=== PATIENT | female | born 1940 | race Caucasian/White ===

== ENCOUNTER → 2020-07-08 11:00 | Outpatient (CLI) | payer MEDICARE, SELFPAY ==
--- NOTE | ~2020-07-08 | XR_ITS ---
EXAMINATION: XR foot RT min 3V DATE: 07/08/2020 11:33 INDICATION: Right foot injury and pain. TECHNIQUE: 4 views of right foot were obtained. COMPARISON: Right foot radiographs 03/18/2018, 02/27/18 FINDINGS: Bone alignment is normal. There are surgical changes of bunionectomy and bunionette-ectomy. There are changes of anterior fusion procedure at first metatarsophalangeal joint with fractured julia tati plate and multiple screws, 2 which are fractured. There is no bridging bone at the first metatars ophalangeal joint. There is moderate osteoarthritis of second metatarsophalangeal joint. There is chr onic flattening of head of second metatarsal, consistent with Freiberg infraction. 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 There is a sliver of bone dorsolateral to the talar head. There is an enthesophyte at plantar aspect of calcaneal tuberosity. IMPRESSION: 1. Age-indeterminate small avulsion fracture fragment dorsolateral to the talar head, new from 018. 2. Failed arthrodesis procedure at first metatarsophalangeal joint. 3. Moderate osteoarthritis of second metatarsophalangeal joint. Reviewed, dictated and finalized at location A. IMPRESSION: 1. Age-indeterminate small avulsion fracture fragment dorsolateral to the talar head, new from 02/27/2018. 2. Failed arthrodesis procedure at first metatarsophalangeal joint. 3. Moderate osteoarthritis of second metatarsophalangeal joint.
== END ==
PROVIDERS: PCP Family Medicine Adolescent Medicine; Visit Provider Family Medicine Adolescent Medicine
DX: M19.071 Primary osteoarthritis, right ankle and foot (principal)
CPT/HCPCS: 73630

== ENCOUNTER 2021-12-20 07:46 | Outpatient (CLI) | payer MEDICARE, SELFPAY ==
--- NOTE | 2021-12-20 08:51 | ECG_ITS ---
Measurements Intervals [place] Rate: 71 P: 52 MS: 146 QRS: 17 QRSD: 79 T: 15 QT: 365 QTc: 399 Interpretive Statements SINUS RHYTHM ATRIAL PREMATURE COMPLEX DELAYED PRECORDIAL R/S TRANSITION LOW QRS VOLTAGE IN PRECORDIAL LEADS CONSIDER INFERIOR INFARCT, AGE INDETERMINATE BORDERLINE ST ABNORMALITY- ANTEROLATERAL LEADS BASELINE ARTIFACT- I, II, III, AVR, AVL, AVF ABNORMAL ECG Electronically Signed On 12-20-2021 9:32:07 [facility] NEED[facility] by Suhail Vail D.O.
[2021-12-20 09:29] LABS: Basophils Absolute Auto 0.1 K/mm3 (0.0-0.1); Basophils Percent Auto 0.9 % (0.2-1.2); Eosinophils Absolute Auto 0.5 K/mm3 (0-0.3); Eosinophils Percent Auto 4.8 % (0-4.4); Hematocrit 44.1 % (37.0-47.0); Hemoglobin 14.3 g/dL (12.0-15.0); Immature Granulocyte Absolute 0.05 K/mm3 (0.00-0.031); Immature Granulocyte Percent A 0.5 % (0-0.5); Lymphocytes Absolute Auto 1.02 K/mm3 (0.9-3.2); Lymphocytes Percent Auto 9.9 % (18.3-44.2); Mean Corpuscular HGB Conc 32.4 g/dl (32-36); Mean Corpuscular Hemoglobin 30.2 pg (26-34); Mean Corpuscular Volume 93.2 fl (80-100); Mean Platelet Volume 9.9 fl (7.4-10.4); Monocytes Absolute Auto 0.9 K/mm3 (0.1-0.6); Monocytes Percent Auto 8.9 % (2.6-8.5); Neutrophils Absolute Auto 7.7 K/mm3 (1.3-6.7); Platelet Count Result 305 k/mm3 (150-375); Red Blood Count 4.73 M/mm3 (4.2-5.4); Red Cell Distribution Width 14.4 % (11.5-14.5); White Blood Count 10.3 K/mm3 (4.5-10.0)
[2021-12-20 09:40] LABS: Albumin Level 4.4 g/dL (3.5-5.1); Estimated Glomerular Filt Rate 33; Glucose 108 mg/dL (65-110)
[2021-12-20 09:42] LABS: Urine Cotinine NEGATIVE
[2021-12-20 09:44] LABS: Hemoglobin A1C 5.2 % (<5.7)
== END 2021-12-20 07:47 | disposition home or self-care (01) ==
PROVIDERS: PCP Family Medicine Adolescent Medicine; Visit Provider Orthopaedic Surgery
DX: Z01.818 Encounter for other preprocedural examination (principal); M17.11 Unilateral primary osteoarthritis, right knee; I49.1 Atrial premature depolarization; Z51.81 Encounter for therapeutic drug level monitoring; Z79.899 Other long term (current) drug therapy
CPT/HCPCS: 80307; 82040; 82565; 82947; 83036; 85025; 86850; 86900; 86901; 87081; 93005

== ENCOUNTER → 2022-01-04 09:55 | Outpatient (CLI) | payer MEDICARE, SELFPAY ==
--- NOTE | ~2022-01-04 | US_ITS ---
EXAMINATION: US renal BI EXAM DATE: 01/04/2022 10:11 INDICATION: N18.32 - Chronic kidney disease, stage 3b. TECHNIQUE: Multiple grayscale and Doppler images of the kidneys were obtained (by a technologist who performed the scan) and subsequently reviewed. There is no prior study for comparison. FINDINGS: Right kidney: There is normal contour and echogenicity. It measures 8.6 x 5.1 x 5.0 centimeters. Th ere are no focal renal lesions identified. There is no hydronephrosis. Left kidney: There is normal contour and echogenicity. It measures 8.7 x 4.1 x 5.1 centimeters. The re are no focal renal lesions identified. There is no hydronephrosis. Bladder unremarkable. IMPRESSION: 1. Sonographically unremarkable kidneys. Reviewed, dictated and finalized at location G. GER NUCLEAR
== END ==
PROVIDERS: PCP Family Medicine Adolescent Medicine; Visit Provider Family Medicine Adolescent Medicine
DX: N18.32 Chronic kidney disease, stage 3b (principal)
CPT/HCPCS: 76775

== ENCOUNTER 2022-03-13 09:33 | Outpatient (CLI) | payer MEDICARE, SELFPAY ==
[2022-03-13 10:39] LABS: Basophils Absolute Auto 0.1 K/mm3 (0.0-0.1); Basophils Percent Auto 0.9 % (0.2-1.2); Eosinophils Absolute Auto 0.5 K/mm3 (0-0.3); Eosinophils Percent Auto 4.9 % (0-4.4); Hematocrit 44.9 % (37.0-47.0); Hemoglobin 14.2 g/dL (12.0-15.0); Immature Granulocyte Absolute 0.07 K/mm3 (0.00-0.031); Immature Granulocyte Percent A 0.7 % (0-0.5); Lymphocytes Absolute Auto 1.24 K/mm3 (0.9-3.2); Lymphocytes Percent Auto 11.8 % (18.3-44.2); Mean Corpuscular HGB Conc 31.6 g/dl (32-36); Mean Corpuscular Hemoglobin 29.5 pg (26-34); Mean Corpuscular Volume 93.2 fl (80-100); Monocytes Absolute Auto 0.7 K/mm3 (0.1-0.6); Monocytes Percent Auto 6.6 % (2.6-8.5); Neutrophils Absolute Auto 7.9 K/mm3 (1.3-6.7); Neutrophils Percent Auto 75.1 % (45.5-73.1); Platelet Count Result 324 k/mm3 (150-375); Red Blood Count 4.82 M/mm3 (4.2-5.4); Red Cell Distribution Width 13.5 % (11.5-14.5); White Blood Count 10.6 K/mm3 (4.5-10.0)
[2022-03-13 10:45] LABS: Albumin Level 4.2 g/dL (3.5-5.1)
[2022-03-13 10:47] LABS: Urine Cotinine NEGATIVE
[2022-03-13 10:48] LABS: Hemoglobin A1C 5.1 % (<5.7)
[2022-03-13 10:50] LABS: Anion Gap 4 mmol/L (8-16); Blood Urea Nitrogen 26 mg/dL (7-17); Carbon Dioxide 28 mmol/L (22-30); Chloride 108 mmol/L (98-107); Estimated Glomerular Filt Rate 36; Glucose 94 mg/dL (65-110); Potassium 4.8 mmol/L (3.4-5.0); Sodium 140 mmol/L (137-145)
[2022-03-13 10:51] LABS: Partial Thromboplastin Time 34.3 SECONDS (22.3-36.8)
== END 2022-03-13 09:34 | disposition home or self-care (01) ==
PROVIDERS: Anesthesiology; PCP Family Medicine Adolescent Medicine; Visit Provider Orthopaedic Surgery
DX: M17.11 Unilateral primary osteoarthritis, right knee (principal); N18.32 Chronic kidney disease, stage 3b; Z01.818 Encounter for other preprocedural examination
CPT/HCPCS: 36415; 80048; 80307; 82040; 83036; 85025; 85610; 85730; 87081

== ENCOUNTER 2023-02-09 13:27 | Emergency (ER) | payer MEDICARE, SELFPAY ==
--- NOTE | ~2023-02-09 | XR_ITS ---
EXAMINATION: XR foot RT min 3V DATE: 02/09/2023 13:57 INDICATION: Pain and swelling TECHNIQUE: Dorsoplantar, lateral, and 2 oblique views of the right foot were obtained. COMPARISON: 07/08/2020 FINDINGS: Again noted are changes of failed first metatarsophalangeal joint arthrodesis. Bunionectomy changes are noted. There is no fracture. There is moderate osteoarthritis at the second metatarsopha langeal joint with chronic flattening of the head of the second metatarsal. There is a plantar calcan eal enthesophyte. Ankylosis of the second proximal interphalangeal joint is again noted. The soft tis sues are unremarkable. IMPRESSION: 1. No acute osseous abnormality. Reviewed, dictated and finalized at location A.
--- NOTE | 2023-02-09 13:29 | ED.URI ---
HPI - URI/Sore Throat General Chief Complaint: Upper Respiratory Infection Stated Complaint: Sinus/Cough/Right Foot Pain Time Seen by Provider: 02/09/23 13:29 Source: patient Mode of arrival: ambulatory Limitations: no limitations History of Present Illness HPI Narrative: Luda is an 82 year old female patient presenting to the clinic today with complaints of sinus congestion, cough, and right foot pain. She reports her foot is chronically hurting however over the last day or 2 it is become more swollen and red. Also reports she has been dealing with sinus congestion and cough x2 weeks. Is bringing up green phlegm. She denies any fever or chills. History of bunionectomy to the right great toe, surgical repair of 2nd toe for hammertoe, and history of right foot drop MD elicited complaint: sore throat and nasal congestion Related Data Home Medications Medication Instructions Recorded Confirmed alpha lipoic acid 600 mg capsule 600 mg PO DAILY 10/31/22 02/09/23 Allergies Allergy/AdvReac Type Severity Reaction Status Date / Time Sulfa (Sulfonamide Allergy Unknown Unknown- Verified 02/09/23 13:32 Antibiotics) A CHILD MIRIAN Inhibitors AdvReac Intermediate cough Verified 02/09/23 13:32 ibuprofen AdvReac Unknown UNABLE TO Verified 02/09/23 13:32 TAKE DUE TO CKD Review of Systems Review of Systems: Pertinent positives per HPI. Patient denies any fever, chills, rash, headache, visual changes, dizziness, shortness of breath, chest pain, palpitations, nausea, vomiting, diarrhea, constipation, abdominal pain, or any urinary issues. [facility] Past Medical History Medical History Arthritis Footdrop Right lower extremity Osteoarthritis of right knee Vision changes Surgical History Surgical History H/O: hysterectomy 1976 History of knee replacement left, 2015, Dr. Goodwin History of lumbar surgery twice History of total right knee replacement 06/08 Hx of neck surgery Family History Family History Father Heart disease Mother Melanoma Other Family history of alcoholism Family history of malignant neoplasm Social History Social History (Reviewed 02/09/23 @ 13:30 by JOHN Doll Smoking status: Never smoker Second hand tobacco smoke exposure: No Additional smoking assessment comments: PT DENIES ALL FORMS OF TOBACCO USE Alcohol intake: current Alcohol use details: Occasional Substance use: never Substance use type: does not use Lack of Transportation: No Lack of Food: Never True Current Housing: I Have Housing Concerned About Future Housing: No Difficulty Paying Gas/Electric Bills: No Difficulty Paying for Meds: No Currently Unemployed: No Education: High School Diploma/GED Difficulty w/ Childcare or Family Care: No Living arrangements: with family Occupation/Education: retired Gender identity (if verbalized by the patient): Female Sexual Orientation (if Verbalized by the Patient): Straight or Heterosexual Spiritual care concerns: No Agree to blood products: Yes Comments At the time of my signature, I reviewed and agree with the nursing past medical, surgical, social, and family history. There is no relevant family history pertinent to the patient complaint. Exam Narrative: General: Well-developed, well nourished, in no apparent distress Head: Normocephalic, atraumatic Eyes: Pupils equally round and reactive to light bilaterally, EOM intact, sclera and conjunctive clear, no discharge, lids normal Ears: TMs intact and clear, ear canals clear, no drainage, grossly hearing normal. Nose: Nares patent, green nasal discharge, moderate to severe inflammation, maxillary and frontal sinus tenderness. Mouth: Oral pharynx without lesions or masses, good
[2023-02-09 13:33] VITALS: BP 138/56; PULSE 88; RESP 18; TEMP 36.7; O2SAT 97
== END 2023-02-09 14:20 | disposition home or self-care (01) ==
PROVIDERS: Emergency Provider Nurse Practitioner Family; PCP Family Medicine Adolescent Medicine
DX: J01.90 Acute sinusitis, unspecified (principal); M10.9 Gout, unspecified; M17.11 Unilateral primary osteoarthritis, right knee; Z96.653 Presence of artificial knee joint, bilateral
CPT/HCPCS: 73630; 99213; G0463

== ENCOUNTER 2024-04-15 08:35 | Outpatient (CLI) | payer MEDICARE, SELFPAY ==
--- NOTE | ~2024-04-15 | NM_ITS ---
EXAMINATION: NM iris stress w perfusion DATE: 04/15/2024 12:15 INDICATION: Other forms of dyspnea. TECHNIQUE: Rest images were obtained following intravenous administration of 9.8 mCi Tc99m tetrofosmi n (Myoview). The patient was infused intravenously with Lexiscan (regadenoson). Then, 30.11 mCi Tc99m tetrofosmin (Myoview) was administered intravenously, and stress images were obtained. Data was cheryl nstructed into short axis and horizontal and vertical long axis SPECT images. Gated SPECT images were also obtained. COMPARISON: None. FINDINGS: There is no definite reversible or fixed perfusion abnormality to suggest ischemia or infar ction. There is no segmental wall motion abnormality. Left ventricular ejection fraction measures > 70%. IMPRESSION: 1. No definite ischemia or infarct. 2. Normal left ventricular ejection fraction measuring >70%. Reviewed, dictated and finalized at location A.
--- NOTE | 2024-04-15 09:07 | EST_ITS ---
Patient Info Name: Luda Roth Age: 84 years : 1940 Gender: Female Ht: 65 in Wt: 177 lbs BSA: 1.94 m2 HR: 68 bpm BP: 124 / 62 mmHg Heart Rhythm: Sinus Rhythm Exam Date: 04/15/2024 10:10 AM Exam Location: Echo Lab Patient Status: Outpatient Admit Date: 04/15/2024 Staff Ordering Physician: Shey Plunkett APRN Attending Provider: Shey Plunkett APRN Exercise Technologist: Mari Montemayor CT Exercise Physician: Suhail Vail DO Exam Type: CA stress iris w NM Study Info Indications R06.09 - Other forms of dyspnea A regadenoson stress test was performed. Summary 1. 1. Negative lexiscan stress test for ischemic ST changes by ECG criteria. 2. 2. Stable hemodynamics throughout the test. 3. 3. Nuclear scan to follow and will be reported separately. Please correlate with it. 4. 4. Patient informed of the above results. Protocol: Lexiscan Stress ECG Details Stage: REST Duration (min): 1 min : 24 sec HR (bpm): 66 SBP (mmHg): 124 DBP (mmHg): 62 Stage: REST Duration (min): 8 min : 6 sec HR (bpm): 68 SBP (mmHg): 124 DBP (mmHg): 62 Stage: STAGE 1 Duration (min): 0 min : 59 sec HR (bpm): 75 SBP (mmHg): 140 DBP (mmHg): 69 Stage: RECOVERY Duration (min): 1 min : 0 sec HR (bpm): 82 SBP (mmHg): 140 DBP (mmHg): 69 Stage: RECOVERY Duration (min): 2 min : 0 sec HR (bpm): 74 SBP (mmHg): 140 DBP (mmHg): 69 Stage: RECOVERY Duration (min): 3 min : 0 sec HR (bpm): 75 SBP (mmHg): 128 DBP (mmHg): 63 Stage: RECOVERY Duration (min): 3 min : 25 sec HR (bpm): 75 SBP (mmHg): 128 DBP (mmHg): 63 Rest HR: 68 bpm Peak HR: 82 bpm Rest Sys BP: 124 mmHg Peak Sys BP: 140 mmHg Max Pred HR: 135 bpm % Max Pred HR: 61 % Target HR: 115 bpm Max RPP: 11,480 bpm*mmHg Termination Reason: Reached target heart rate or workload Cardiac Symptoms: Shortness of breath Total Time: 1 min : 0 sec Rest Amor BP: 62 mmHg Peak Amor BP: 69 mmHg Total Dose: 0.4 mg Resting ECG Sinus rhythm. Stress ECG No ST changes. Arrhythmias None. Report Signatures
== END 2024-04-15 08:36 | disposition home or self-care (01) ==
LOC: ANHCARD 08:36
PROVIDERS: PCP Family Medicine Adolescent Medicine; Visit Provider Nurse Practitioner Family
DX: R06.09 Other forms of dyspnea (principal)
CPT/HCPCS: 78452; 93017; A9502; J2785